=== PATIENT | female | born 1970 | race Caucasian/White ===

== ENCOUNTER → 2021-05-01 | Outpatient (CLI) | payer OTHER, BC ==
[~2021-05-01] MED LIST: MECL25 PO; MICARDIS HCT PO; TELM80/12.5 PO; ZOLP5 PO
== END | disposition home or self-care (01) ==
LOC: LAB SHORT 07:40
DX: B35.1 Tinea unguium (principal); L60.2 Onychogryphosis
CPT/HCPCS: 88305; 88312

== ENCOUNTER 2024-03-25 03:36 | Day surgery (SDC) | payer BC | END 2024-03-25 23:26 | disposition home or self-care (01) | LOC: WOUND 03:36 | DX: S91.102A Unspecified open wound of left great toe without damage to nail, initial encounter (principal); E11.621 Type 2 diabetes mellitus with foot ulcer; L97.522 Non-pressure chronic ulcer of other part of left foot with fat layer exposed; I12.9 Hypertensive chronic kidney disease with stage 1 through stage 4 chronic kidney disease, or unspecified chronic kidney disease; E11.22 Type 2 diabetes mellitus with diabetic chronic kidney disease; N18.9 Chronic kidney disease, unspecified; X58.XXXA Exposure to other specified factors, initial encounter ==

== ENCOUNTER 2024-04-01 03:19 | Day surgery (SDC) | payer BC | END 2024-04-01 23:00 | disposition home or self-care (01) | LOC: WOUND 03:19 | DX: S91.302A Unspecified open wound, left foot, initial encounter (principal); E11.621 Type 2 diabetes mellitus with foot ulcer; L97.522 Non-pressure chronic ulcer of other part of left foot with fat layer exposed; X58.XXXA Exposure to other specified factors, initial encounter ==

== ENCOUNTER 2024-04-08 03:35 | Day surgery (SDC) | payer BC | END 2024-04-08 23:30 | disposition home or self-care (01) | LOC: WOUND 03:35 | DX: S91.302D Unspecified open wound, left foot, subsequent encounter (principal); E11.621 Type 2 diabetes mellitus with foot ulcer; L97.522 Non-pressure chronic ulcer of other part of left foot with fat layer exposed; X58.XXXD Exposure to other specified factors, subsequent encounter | CPT/HCPCS: G0463 ==

== ENCOUNTER 2024-04-15 04:00 | Day surgery (SDC) | payer BC | END 2024-04-15 23:28 | disposition home or self-care (01) | LOC: WOUND 04:00 | DX: S91.332D Puncture wound without foreign body, left foot, subsequent encounter (principal); X58.XXXD Exposure to other specified factors, subsequent encounter; E11.621 Type 2 diabetes mellitus with foot ulcer; L97.422 Non-pressure chronic ulcer of left heel and midfoot with fat layer exposed | CPT/HCPCS: G0463 ==

== ENCOUNTER 2024-05-06 10:13 | Day surgery (SDC) | payer BC | END 2024-05-06 23:00 | disposition home or self-care (01) | LOC: WOUND 10:13 | DX: E11.621 Type 2 diabetes mellitus with foot ulcer (principal); L97.522 Non-pressure chronic ulcer of other part of left foot with fat layer exposed; I12.9 Hypertensive chronic kidney disease with stage 1 through stage 4 chronic kidney disease, or unspecified chronic kidney disease; E11.22 Type 2 diabetes mellitus with diabetic chronic kidney disease; N18.9 Chronic kidney disease, unspecified; Z79.899 Other long term (current) drug therapy | CPT/HCPCS: G0463 ==

== ENCOUNTER → 2025-03-24 | Outpatient (CLI) | payer BC ==
[~2025-03-24] MED LIST changes: +ADALAT CC60 M1 PO; +CYCL10 PO; +ELIQUIS5 M3 PO; +FENO160 PO; +GLIP10 PO; +METFORMIN HCL500 M3 PO; +NEURONTIN300 MG PO; +PROZAC40 MG PO; +SYNTHROID125 MC1 PO; +TRULICITY1.5 MG/0.1 SC; +Toprol Xl50 MG PO; +ZOLPIDEM TARTRA10 MG PO
== END ==
LOC: LAB SHORT 15:27 → LAB 15:27
DX: N39.0 Urinary tract infection, site not specified (principal)
CPT/HCPCS: 87077; 87086; 87186